=== PATIENT | female | born 1955 | race African-American/Black ===

== ENCOUNTER 2024-07-12 11:21 | Emergency (ER) | payer MEDICARE, MEDICAID ==
[~2024-07-12] VITALS: Ht 170.2 cm; Wt 77.6 kg
[2024-07-12 11:23] VITALS: TEMP 98.3
[2024-07-12 12:58] VITALS: PULSE 86; RESP 16; O2SAT 100
[2024-07-12 13:37] VITALS: BP 135/89; PULSE 78; RESP 18
[2024-07-12] MEDS: MORPHINE SULFATE INJ 2 MG/ml SYRG IM ONE (13:37)
[2024-07-12] MEDS: ONDANSETRON ODT 4 MG TAB PO ONE (13:37)
== END 2024-07-12 14:14 | disposition home or self-care (01) ==
LOC: ER 11:21
DX: G89.29 Other chronic pain (principal); M54.50 Low back pain, unspecified
CPT/HCPCS: 96372; 99283; J2270; Q0162

== ENCOUNTER 2024-12-05 10:11 | Emergency (ER) | payer MEDICARE, MEDICAID ==
[~2024-12-05] VITALS: Ht 170.2 cm; Wt 79.6 kg
--- NOTE | 2024-12-05 10:20 | ED.PDOC ---
Eye-HPI HPI Comments A 69 YEAR OLD FEMALE PRESENTS TO THE ED WITH CHIEF COMPLAINT OF SORE THROAT. PATIENT REPORTS THAT SHE HAS BEEN EXPERIENCING A SORE THROAT FOR THE PAST MONTH, WORSENING OVER TIME. PATIENT RELAYS THAT SHE HAS HISTORY OF GERD AND BELIEVES HER SORE THROAT IS DUE TO IT. PATIENT DENIES ANY N/V, HEADACHE, FEVER, CHILLS, ABDOMINAL PAIN, CHEST PAIN, OR NASAL CONGESTION. NO OTHER SYMPTOMS REPORTED AT THIS TIME OF CARE. Chief Complaint: Sore Throat Time Seen by MD: 10:18 Reviewed Notes: Nurses Notes, Medications, Allergies Home Meds Active Scripts Pantoprazole Sodium Sesquihydr (Protonix) 40 Mg Tab, 40 MG PO DAILY, #30 TAB Prov:DAVID CARR 12/05/24 Methylprednisolone (Medrol Dosepak) 4 Mg Keven, 4 MG PO UD, #21 TAB UAD Prov:DAVID CARR 12/05/24 Azithromycin (Azithromycin) 500 Mg Tab, 1 TAB PO DAILY, #5 TAB Prov:DAVID CARR 12/05/24 Information Source: Patient Mode of Arrival: Ambulatory Timing: Months Duration: Since onset Prehospital treatment: None Quality: Pain Lids: Normal Conjunctiva: Normal Cornea: Normal Pupils: Normal EOM: Normal Fundus: Normal Anterior chamber: Normal Mouth Location: Pharynx Nose: Normal Sinuses: Normal Oropharynx: Red Onset: Spontaneous Throat Exposed to: None History of: None Associated signs and symptoms: Sore Throat Past Medical History PAST MEDICAL HISTORY: GERD Surgical History: Hysterectomy, Denies all surgeries PATIENT CLERICAL ASSISTANT History: No Pertinent PATIENT CLERICAL ASSISTANT History Family History Family History: Reviewed,noncontributory to illness Social History Smoker: Non-Smoker Alcohol: Denies ETOH Use Drugs: Denies Drug Use Lives In: Home Constitutional: denies: chills, diaphoresis, fatigue, fever, malaise, sweats, weakness, others EENTM: reports: throat pain, voice changes; denies: blurred vision, double vis ion, ear bleeding, ear discharge, ear drainage, ear pain, ear ringing, eye pain, eye redness, hearing loss, mouth pain, mouth swelling, nasal discharge, nose bleeding, nose congestion, nose pain, photophobia, tearing, throat swelling, others Respiratory: denies: cough, hemoptysis, orthopnea, SOB at rest, shortness of breath, SOB with excertion, stridor, wheezing, others Cardiovascular: denies: chest pain, dizzy spells, diaphoresis, Dyspnea on exertion, edema, irregular heart beat, left arm pain, lightheadedness, palpitations, PND, syncope, others Gastrointestinal: denies: abdomen distended, abdominal pain, blood streaked bowels, constipated, diarrhea, dysphagia, difficulty swallowing, hematemesis, melena, nausea, poor appetite, poor fluid intake, rectal bleeding, rectal pain, vomiting, others Genitourinary: denies: abnormal vagina bleeding, burning, dyspareunia, dysuria, flank pain, frequency, hematuria, incontinence, pain, , vagina discharge, urgency, others Neurological: denies: dizziness, fainting, headache, left sided numbness, left sided weakness, numbness, paresthesia, pre-existing deficit, right sided numbness, right sided weakness, seizure, speech problems, tingling, tremors, weakness, others Musculoskeletal: denies: back pain, gout, joint pain, joint swelling, muscle pain, muscle stiffness, neck pain, others Integumetry: denies: bruises, change in color, change in hair/nails, dryness, laceration, lesions, lumps, rash, wounds, others Allergic/Immunocompromised: denies: Difficulty Healing, Frequent Infections, Hives, Itching, others Hematologic/Lymphatic: denies: anemia, blood clots, easy bleeding, easy bruising, swollen glands, others Endocrine: denies: excessive hunger, excessive sweating, excessive thirst, excessive urination, flushing, intolerance to cold, intolerance to heat, u nexplained weight gain, unexplained weight loss, others Psychiatric: denies: anxiety, bipolar disorder, depression, hopeless, panic disorder, schizophrenia, sleepless, suicidal, others All Other Systems: Reviewed and Negative Physical Exam General Appearance: No Apparent Distress, Normal HEENT: PERRL/EOMI, Pharyngeal Erythema (VESICLE PHARYNX, NO EXUDATES. ), TMs Normal Neck: Full Range of Motion, Non-Tender, Normal, Normal Inspection Respiratory: Chest Non-Tender, Lungs Clear, No Accessory Muscle Use, No Respiratory Distress, Normal Breath Sounds Cardiovascular: No Edema, No JVD, No Murmur, No Gallop, Normal Peripheral Pulses, Regular Rate/Rhythm Breast Exam: Deferred Gastrointestinal: No Organomegaly, Non Tender, No Pulsatile Mass, Normal Bowel Sounds, Soft Genitalia: Deferred Pelvic: Deferred Rectal: Deferred Extremities: No calf tenderness, Normal capillary refill, Normal inspection, Normal range of motion, Non-tender, No pedal edema Musculoskeletal : Apperance: Normal Neurologic: Alert, remote control assembler II-XII nml as Tested, No Motor Deficits, Normal Affect, Normal Mood, No Sensory Deficits Cerebellar Function: Normal Reflexes: Normal Skin: Dry, Normal Color, Warm Peripheral Pulses: 2+ carotid (R), 2+ carotid (L) Lymphatic: No Adenopathy Was a procedure done? Was a procedure done?: No EENT DIFF Eye: N/A Ear: Otitis Media, N/A Nose: N/A Mouth: N/A Sore Throat: Pharyngitis, Streptococcal, Viral Pharyngitis X-Ray, Labs, Meds, VS Vital Signs Date Time Temp Pulse Resp B/P (MAP) Pulse Ox O2 Delivery O2 Flow Rate FiO2 12/05/24 10:24 98.8 85 16 156/91 (112) 99 CT NECK: FINDINGS: There is no evidence of cervical mass lesion or large fluid collection. The fat planes in the deep spaces of the neck are intact. The airway and larynx are unremarkable. The parotid, submandibular and thyroid glands are unremarkable. No pathologically enlarged lymph nodes. The visualized lung apices are clear. The limited visualized portions of the brain are unremarkable. Multilevel cervical spondylosis. There is a 4 mm left apical pulmonary nodule. IMPRESSION: 1. No evidence of cervical mass lesion, pathologically enlarged lymph nodes or fluid collection. 2. 4 mm left apical pulmonary nodule. Dedicated chest CT may be obtained. X-Ray, Labs, Meds, VS Comment I reviewed the following notes from patient's past medical encounters: None The following tests were ordered, and results were reviewed by me: CT NECK Additional Information was gathered from interviewing the following independent historians: None I reviewed and agreed with the following test results read by other providers: CT NECK I discussed treatment and results with medical personnel. Time of 1ST Reevaluation: 12:00 Reevaluation 1ST: Improved Patient Education/Counseling: Diagnosis, Treatment, Need For Follow Up Family Education/Counseling: Diagnosis, Treatment, No Family Present Medical Screening: No EMC Exist At This Time Departure 1 Departure Time of Disposition: 12:00 Impression: Primary Impression: Pharyngitis Qualified Codes: J02.9 - Acute pharyngitis, unspecified Additional Impression: History of gastroesophageal reflux (GERD) Disposition: 01 HOME / SELF CARE / HOMELESS Condition: Stable Additional Instructions: FOLLOW-UP WITH PCP IN 1 TO 2 DAYS. TAKE MEDICATIONS PRESCRIBED. RETURN TO ED FOR ANY NEW OR WORSENING SYMPTOMS. e-Prescriptions Pantoprazole Sodium Sesquihydr (Protonix) 40 Mg Tab 40 MG PO DAILY, #30 TAB Prov: DAVID CARR PRISCILLA 12/05/24 Methylprednisolone (Medrol Dosepak) 4 Mg Keven 4 MG PO UD, #21 TAB UAD Prov: DAVID CARR PA 12/05/24 Azithromycin (Azithromycin) 500 Mg Tab 1 TAB PO DAILY, #5 TAB Prov: LILLYDAVID PRISCILLA 12/05/24 Discharged With: Self Critical Care Note Critical Care Time?: No Stability Stability form required: No Heart Score Heart Score: Heart Score Response (Comments) Value History N/A 0 EKG N/A 0 Age N/A 0 Risk Factors N/A 0 Troponin N/A 0 Total 0 I personally scribed for LILLYFERNANDAXIA PA ([email or web address]) on 12/05/24 at 10:20. Electronically submitted by Maynor Hernandez ([employer]). I personally scribed for LILLYFERNANDAXIA PA ([email or web address]) on 12/05/24 at 10:23. Electronically submitted by Maynor Hernandez ([employer]). I personally scribed for LILLY,YINXIA PA ([email or web address]) on 12/05/24 at 10:48. Electronically submitted by Maynor Hernandez ([employer]). I personally scribed for LILLY,YINXIA PA ([email or web address]) on 12/05/24 at 10:49. Electronically submitted by Maynor Hernandez ([employer]). I personally scribed for LILLY,YINXIA PA ([email or web address]) on 12/05/24 at 11:44. Electronically submitted by Maynor Hernandez ([email or web address]). I personally scribed for LILLY,YINXIA PA ([email or web address]) on 12/05/24 at 11:58. Electronically submitted by Maynor Hernandez ([email or web address]). DAVID CARR Dec 05, 2024 10:20
--- NOTE | 2024-12-05 11:41 | DVH ---
EXAM: CT NECK WITHOUT CONTRAST INDICATION: THROAT PAIN X ONE MONTH, NO INFECTION SIGNS Exam Date: 12/05/2024 10:53 AM COMPARISON: None TECHNIQUE: CT of the neck without intravenous contrast. Coronal and sagittal reformatted images are provided. RADIATION DOSE: CTDIvol: 22.02 mGy, DLP: 639.53 mGy*cm FINDINGS: There is no evidence of cervical mass lesion or large fluid collection. The fat planes in the deep s paces of the neck are intact. The airway and larynx are unremarkable. The parotid, submandibular a nd thyroid glands are unremarkable. No pathologically enlarged lymph nodes. The visualized lung api shane are clear. The limited visualized portions of the brain are unremarkable. Multilevel cervical s pondylosis. There is a 4 mm left apical pulmonary nodule. IMPRESSION: 1. No evidence of cervical mass lesion, pathologically enlarged lymph nodes or fluid collection. 2. 4 mm left apical pulmonary nodule. Dedicated chest CT may be obtained. HS:Y
[2024-12-05] MEDS ORDERED: AZIT500T66 PO (11:56)
[2024-12-05] MEDS ORDERED: PANT40TA2 PO (11:56)
[2024-12-05] MEDS ORDERED: METH4PAK PO (11:56)
[2024-12-05 12:26] VITALS: BP 140/88; PULSE 82; RESP 16; TEMP 98.9; O2SAT 98
== END 2024-12-05 12:28 | disposition home or self-care (01) ==
LOC: ER 10:11
DX: J02.9 Acute pharyngitis, unspecified (principal); M54.2 Cervicalgia; K21.9 Gastro-esophageal reflux disease without esophagitis; Z90.710 Acquired absence of both cervix and uterus; Z79.899 Other long term (current) drug therapy
CPT/HCPCS: 70490